=== PATIENT | male | born 1960 | race Caucasian/White ===

== ENCOUNTER 2018-08-28 17:15 | Observation (INO) | payer OTHER ==
[~2018-08-28] VITALS: Ht 175.3 cm; Wt 98.4 kg
[2018-08-28] MEDS ORDERED: METO50 PO (21:42)
[2018-08-28] MEDS ORDERED: PANT40 PO (22:02)
[2018-08-28] MEDS ORDERED: NEPHRO-VITE RX1 EACH PO (22:04)
[2018-08-28] MEDS ORDERED: ALPR.5 PO (22:05)
[2018-08-28] MEDS ORDERED: HYDMOR2 PO (22:06)
[2018-08-28] MEDS ORDERED: OXYC5 (22:06)
[2018-08-28] MEDS ORDERED: Roxicodone5 MG (22:07)
[2018-08-28] MEDS ORDERED: [UNRECOGNIZED DRUG - OTHER] (22:07)
[2018-08-28] MEDS ORDERED: CHOL10002 (22:08)
[2018-08-28] MEDS ORDERED: ATOR40TA PO (22:10)
[2018-08-28] MEDS ORDERED: Aspir 8181 MG PO (22:10)
[2018-08-28] MEDS ORDERED: BUPR150ER PO (22:11)
[2018-08-28] MEDS ORDERED: CALC.25 PO (22:12)
[2018-08-28] MEDS ORDERED: CLOP75 PO (22:13)
[2018-08-28] MEDS ORDERED: Calcium Acetat667 MG PO (22:13)
[2018-08-28] MEDS ORDERED: FISH OIL-OMEGA1 EACH PO (22:14)
[2018-08-28] MEDS ORDERED: FLUO10 PO (22:14)
[2018-08-28] MEDS ORDERED: Humalog Mi100 UNIT/4 (22:15)
[2018-08-28] MEDS ORDERED: FURO80 PO (22:15)
[2018-08-28] MEDS ORDERED: ISOMON20 PO (22:16)
[2018-08-28] MEDS ORDERED: LIDO5TO TOP (22:16)
[2018-08-28] MEDS ORDERED: CORTIZONE-10 PL28 GM TOP (22:23)
[2018-08-29 01:18] LABS: Calcium, Blood 9.5 mg/dL (8.5-10.1); Creatinine, Blood 12.3 mg/dL (0.60-1.20); Potassium, Blood 4.3 mmol/L (3.5-5.5)
--- NOTE | 2018-08-29 05:00 | NUR ---
SHIFT SUMMARY & TRANSFER NOTE: PT NEW ADMIT FROM ED THIS EVENING. PT SENT FROM [facility] c COMPLAINTS OF RECURRENT CHEST PAIN TO R/O IA AND TO RECIEVE DIALYSIS. 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 PER PT, THE CP STARTED ABOUT 2 DAYS AGO AND RADIATED TO L ARM AND JAW. CHEST PAIN RELIEVED c NITRO. PT EXPERIENCES 1 EPISODE OF CHEST PAIN IN ED PRIOR TO ARRIVAL. TROPONIN .033 UPON ARRIVAL AND .025 AT MIDNIGTH RECHECK. PT HAS NOT HAD ANY EPISODES OF CHEST PAIN SINCE BEING ADMITTED. PRN EKG ORDERED FOR CHEST PAIN. PRIOR EKGs HAVE BEEN NORMAL. TELE IN PLACE; SINUS MANFRED @ 58 BPM. PER PATIENT, HIS HR IS USUALLY LOW IN THE 50s, AND HE TAKES HIS BP MEDS (METOPROLOL) REGARDLESS OR ELSE HIS BP WILL "SKYROCKET". BP 198/94 UPON ARRIVAL, ADMINISTERED SCHEDULED METOPROLOL AND PRN HYDRALAZINE 10MG IV; BP 160/89. PT DENIES HEADACHE OR CHEST PAIN DURING THIS TIME. DENIES SOB. RESP E/U ON ROOM AIR. A&O X 4, INDEPENDENT IN ROOM. ACHS; CBG 96 UPON ARRIVAL TO FLOOR; NO COV INDICATED. CRITICAL HIGH CREATININE THIS AM OF 12.3; PT HAS NOT HAD DIALYSIS X2 DAYS. PER ED RN REPORT, K+ WAS ELEVATED @ 5.3. K+ IS WNL PER AM LABS. NOTIFIED HOSPITALIST OF CRITICAL HIGH CREATININE. NO NEW ORDERS GIVEN PT IS SUPPOSE TO RECIEVE DIALYSIS TODAY. CONSULT CALLED IN TO DR PANG WHO WILL BE MANAGING PT'S DIALYSIS DURING HOSPITAL ADMISSION.
--- NOTE | 2018-08-29 15:25 | NUR ---
DISCHARGE DISCHARGE MEDICATIONS AND INSTRUCTIONS EXPLAINED TO PATIENT. RADHA STATED UNDERSTANDING. IV REMOVED WITHOUT DIFFICULTY. BELONGINGS WITH PATIENT. PATIENT TRANSFERED TO PRIVATE VEHICLE VIA WHEELCHAIR.
== END 2018-08-29 14:58 | disposition home or self-care (01) ==
LOC: ER 17:15 → MEDS 17:16 → ENPENDDIS 08-29 14:36 → MEDS 08-29 14:58
PROVIDERS: ADMIT Hospitalist
DX: R07.9 Chest pain, unspecified (principal); I12.0 Hypertensive chronic kidney disease with stage 5 chronic kidney disease or end stage renal disease; E11.22 Type 2 diabetes mellitus with diabetic chronic kidney disease; N18.6 End stage renal disease; E78.5 Hyperlipidemia, unspecified; G89.4 Chronic pain syndrome; I25.10 Atherosclerotic heart disease of native coronary artery without angina pectoris; E66.01 Morbid (severe) obesity due to excess calories; E87.5 Hyperkalemia; Z95.5 Presence of coronary angioplasty implant and graft; Z79.899 Other long term (current) drug therapy; Z79.82 Long term (current) use of aspirin
CPT/HCPCS: 36415; 80048; 82947; 84484; 93005; 93010; 96372; 96374; 96375; 96376; 99285-25; G0257; G0378; J0360; J1650; J1940; J2405

== ENCOUNTER 2024-09-29 12:11 | Day surgery (SDC) | payer OTHER ==
[~2024-09-29] VITALS: Ht 170.2 cm; Wt 90.7 kg
[~2024-09-29 12:11] MED LIST: ALPR.5 PO; ATOR40TA PO; Aspir 8181 MG PO; Atropine Sulfate 0.1 MG/ML 10ML SYR ONE; BUPR150ER PO; CALC.25 PO; CHOL10002; CLOP75 PO; CORTIZONE-10 PL28 GM TOP; Calcium Acetat667 MG PO; FISH OIL-OMEGA1 EACH PO; FLUO10 PO; FURO80 PO; Glycopyrrolate 0.2 MG/ML 1MLVIAL ONE; HYDMOR2 PO; Humalog Mi100 UNIT/4; ISOMON20 PO; LIDO5TO TOP; Lactated Ringer's 1,000 ML IV ONE; Lidocaine 2% 5 ML SDV ONE; Lidocaine HCl/Pf 1% 5 ML VIAL ONE; METO50 PO; NEPHRO-VITE RX1 EACH PO; OXYC5; Ondansetron HCl 2 MG / ML 2ML Vial ONE; PANT40 PO; Roxicodone5 MG; [UNRECOGNIZED DRUG - OTHER]; ePHEDrine Sulfate 50 MG/ML 1ML Injection ONE
[2024-09-29] MEDS ORDERED: ROSUVASTATIN CA10 MG (13:40)
[2024-09-29] MEDS ORDERED: EZET10 (13:43)
[2024-09-29] MEDS ORDERED: LACT (13:44)
[2024-09-29] MEDS ORDERED: NS 1,000 ML IV ONE (15:06)
[2024-09-29] MEDS ORDERED: propofoL 50 ML IV ONE ×2 (15:29→15:54)
[2024-09-29 17:00] VITALS: BP 93/53
== END 2024-09-29 17:00 | disposition home or self-care (01) ==
LOC: ORSCSDS 12:11
PROVIDERS: Internal Medicine Gastroenterology
PROC: 0DBH8ZX Excision of Cecum, Via Natural or Artificial Opening Endoscopic, Diagnostic (ICD-10-PCS; principal; 2024-09-29 15:00)
PROC: 0DBL8ZX Excision of Transverse Colon, Via Natural or Artificial Opening Endoscopic, Diagnostic (ICD-10-PCS; principal; 2024-09-29 15:00)
PROC: 0DB68ZX Excision of Stomach, Via Natural or Artificial Opening Endoscopic, Diagnostic (ICD-10-PCS; principal; 2024-09-29 15:00)
DX: R19.7 Diarrhea, unspecified (principal); D12.0 Benign neoplasm of cecum; D12.3 Benign neoplasm of transverse colon; K31.7 Polyp of stomach and duodenum; R13.10 Dysphagia, unspecified; R11.2 Nausea with vomiting, unspecified; K21.9 Gastro-esophageal reflux disease without esophagitis; Z86.0100 Personal history of colon polyps, unspecified; N18.6 End stage renal disease; E11.22 Type 2 diabetes mellitus with diabetic chronic kidney disease; I12.0 Hypertensive chronic kidney disease with stage 5 chronic kidney disease or end stage renal disease; Z99.2 Dependence on renal dialysis; E78.5 Hyperlipidemia, unspecified; F43.10 Post-traumatic stress disorder, unspecified; Z86.73 Personal history of transient ischemic attack (TIA), and cerebral infarction without residual deficits; I25.10 Atherosclerotic heart disease of native coronary artery without angina pectoris; Z86.19 Personal history of other infectious and parasitic diseases; Z79.82 Long term (current) use of aspirin; Z79.899 Other long term (current) drug therapy
CPT/HCPCS: 82947; 88305; 88342; J0461; J2003; J2405; J2704; J7120

== ENCOUNTER 2024-10-14 07:00 | Day surgery (SDC) | payer OTHER ==
[~2024-10-14] VITALS: Ht 170.2 cm; Wt 92.0 kg
[~2024-10-14 07:00] MED LIST changes: -Atropine Sulfate 0.1 MG/ML 10ML SYR ONE; +C COMPLEX1000 M1 PO; +CINACALCET HCL60 M1; +EZET10; +EZET10 PO; +Full Spectrum0.8 MG; -Glycopyrrolate 0.2 MG/ML 1MLVIAL ONE; +ISOSORBIDE MONO60 MG PO; +KRILL OIL500 MG PO; +LACT; -Lactated Ringer's 1,000 ML IV ONE; -Lidocaine 2% 5 ML SDV ONE; -Lidocaine HCl/Pf 1% 5 ML VIAL ONE; +METO25ER PO; +MULTIPLE VITAM1 EACH PO; -Ondansetron HCl 2 MG / ML 2ML Vial ONE; +PROTONIX4010 PO; +ROSUVASTATIN CA10 MG; +THERA-D2000 UNIT PO; +Vitamin B Comple1 EA PO; -ePHEDrine Sulfate 50 MG/ML 1ML Injection ONE
[2024-10-14] MEDS ORDERED: Lactated Ringer's 1,000 ML IV ONE ×2 (08:51→09:39)
--- NOTE | 2024-10-14 10:30 | NUR ---
10/14/24 1030 Kylah Leslie PT'S CASE HAS BEEN DELAYED. WAITING ON LAB RESULTS. LAB LOST 1ST BLOOD WORK THAT WAS DRAWN AT [facility] AND THEN SENT TO THE MAIN LAB AT [facility]. RN HAD TO REDRAW FOR CHEM PANEL DUE TO PATIENT BEING ON DIALYSIS. PATIENT AWARE OF SITUATION AND HAS VOICED HIS FRUSTRATION TO STAFF.
[2024-10-14] MEDS ORDERED: Ondansetron HCl 2 MG / ML 2ML Vial ONE (10:43)
[2024-10-14 11:56] LABS: Bun/Creatinine Ratio 4.5 (12.0-20.0); Calcium, Blood 8.9 mg/dL (8.5-10.1); Potassium, Blood 4.2 mmol/L (3.5-5.5)
[2024-10-14 11:59] LABS: Creatinine, Blood 8.93 mg/dL (0.60-1.20)
[2024-10-14] MEDS ORDERED: propofoL 50 ML IV ONE (12:25)
[2024-10-14] MEDS ORDERED: ePHEDrine Sulfate 50 MG/ML 1ML Injection ONE (12:52)
[2024-10-14 14:00] VITALS: BP 105/55
== END 2024-10-14 13:45 | disposition home or self-care (01) ==
LOC: ORSCSDS 07:00
PROVIDERS: Internal Medicine Gastroenterology
PROC: 0DBM8ZX Excision of Descending Colon, Via Natural or Artificial Opening Endoscopic, Diagnostic (ICD-10-PCS; principal; 2024-10-14 09:30)
PROC: 0DBN8ZX Excision of Sigmoid Colon, Via Natural or Artificial Opening Endoscopic, Diagnostic (ICD-10-PCS; principal; 2024-10-14 09:30)
DX: Z01.818 Encounter for other preprocedural examination (principal); Z86.0101 Personal history of adenomatous and serrated colon polyps; N18.6 End stage renal disease; D12.5 Benign neoplasm of sigmoid colon; K63.5 Polyp of colon; K57.30 Diverticulosis of large intestine without perforation or abscess without bleeding; K64.4 Residual hemorrhoidal skin tags; Z90.49 Acquired absence of other specified parts of digestive tract; K21.9 Gastro-esophageal reflux disease without esophagitis; Z79.82 Long term (current) use of aspirin; Z79.899 Other long term (current) drug therapy
CPT/HCPCS: 80048; 82947; 88305; J2405; J2704; J7120